=== PATIENT | female | born 1995 | race Hispanic/Latino ===

== ENCOUNTER 2021-03-04 15:45 | Emergency (ER) | payer BC ==
[2021-03-04] MEDS ORDERED: Acetaminophen 500 MG TAB ONE (16:20)
[2021-03-04] MEDS ORDERED: Dexamethasone 10 MG/ML VIAL ONE (16:20)
[2021-03-04 16:25] LABS: #Lymphocytes 1.7 thou/uL (1.20-3.40); #Monocytes 0.2 thou/uL (0.11-0.59); %Eosinophils 0.1 % (0.0-10.0); %Lymphocytes 43.2 % (21.0-51.0); %Monocytes 5.3 % (0.0-10.0); %Neutrophils 50.3 % (42.0-75.0); Hemoglobin 15.1 g/dL (12.0-16.0); Mean Corpuscular HGB CONC 32.7 g/dL (32.0-36.0); Mean Corpuscular Volume 85.6 fL (78.0-98.0); Mean Platelet Volume 10.7 fL (7.4-10.4); Platelet Count 132 thou/uL (130-400); RBC Distribution Width 11.7 % (11.5-14.5); Red Blood Cell (RBC) Count 5.41 mill/uL (4.20-5.40)
[2021-03-04 16:40] LABS: ALT (SGPT) 86 U/L (8-55); AST (SGOT) 44 U/L (5-34); Albumin 4.3 g/dL (3.5-5.0); Alkaline Phosphatase 71 U/L (40-110); Anion Gap 14 mmol/L (10-20); BUN (Urea Nitrogen) 11 mg/dL (7.0-18.7); Bilirubin, Total 0.6 mg/dL (0.2-1.2); Calc. Creatinine Clearance 0 mL/min (70-130); Calcium 8.8 mg/dL (7.8-10.44); Carbon Dioxide 27 mmol/L (22-29); Chloride 103 mmol/L (98-107); Globulin 3.9 g/dL (2.4-3.5); Glucose 92 mg/dL (70-105); Potassium 3.6 mmol/L (3.5-5.1); Protein, Total 8.2 g/dL (6.0-8.3); Sodium 140 mmol/L (136-145)
== END 2021-03-04 17:39 | disposition home or self-care (01) ==
LOC: ERS 15:45
DX: U07.1 COVID-19 (principal)
CPT/HCPCS: 71045; 80053; 83605; 85025; 85652; 86140; 96374; J1100